=== PATIENT | female | born 1980 | race African-American/Black ===

== ENCOUNTER 2021-09-23 07:53 | Outpatient (CLI) | payer OTHER | END 2021-09-23 07:54 | disposition home or self-care (01) | LOC: CSHLAB 07:53 | PROVIDERS: ATTEND Obstetrics & Gynecology | DX: Z01.812 Encounter for preprocedural laboratory examination (principal); Z20.822 Contact with and (suspected) exposure to COVID-19; D25.9 Leiomyoma of uterus, unspecified; N92.0 Excessive and frequent menstruation with regular cycle | CPT/HCPCS: 84703; 85027; 86850; 86900; 86901; U0003; U0005 ==

== ENCOUNTER 2021-09-28 05:51 | Day surgery (SDC) | payer OTHER ==
[2021-09-23 10:21] LABS: Mean Corpuscular HGB CONC 29.3 g/dL (32.0-36.0); Mean Corpuscular Hemoglobin 16.2 pg (27.0-33.0); Mean Corpuscular Volume 55.5 fl (81.6-98.3); Mean Platelet Volume 9.3 fl (7.4-10.4); Platelet Count 400 10x3/uL (150-450); RBC Distribution Width 20.3 % (11.5-14.5); Red Blood Cell (RBC) Count 4.31 10x6/uL (3.90-5.03); White Blood Cell (WBC) Count 4.5 10x3/uL (3.5-10.5)
[2021-09-23 10:39] LABS: BHCG - Serum Negative (NEGATIVE); Pregs Control Bar Appear? YES (CONTROL BAR)
[2021-09-23 10:40] LABS: Pregs Control Background? CLEAR/WHITE (CLR/WHITE)
[2021-09-23 18:56] LABS: SARS-CoV-2 PCR by NAA Not Detected (NotDetected)
[2021-09-26 12:47] VITALS: BMI 28.9
[2021-09-28] MEDS ORDERED: Bupivacaine PF 0.5% 30 ML VIAL ONE (06:10)
[2021-09-28] MEDS ORDERED: EPINEPHrine 1 MG/ML AMP ONE (06:10)
[2021-09-28] MEDS ORDERED: CeleCOXIB 100 MG CAP ONE (06:32)
[2021-09-28] MEDS ORDERED: Gabapentin 300 MG CAP ONE (06:32)
[2021-09-28] MEDS ORDERED: Lidocaine 1% MPF 2 ML VIAL ONE (06:32)
[2021-09-28] MEDS ORDERED: Famotidine/PF 20 mg/2ml Vial ONE (06:32)
[2021-09-28] MEDS ORDERED: Ondansetron PF 4 MG/2 ML Vial ONE (06:41)
[2021-09-28] MEDS ORDERED: Lidocaine 1% PF 5 ML VIAL ONE (06:41)
[2021-09-28] MEDS ORDERED: Midazolam HCl 2 mg/2 ml Vial ONE ×2 (06:41→07:24)
[2021-09-28] MEDS ORDERED: Ketorolac Tromethamine 30 MG/ML VIAL ONE (06:41)
[2021-09-28] MEDS ORDERED: PROPOFOL 20 ML ONE (06:41)
[2021-09-28] MEDS ORDERED: Fentanyl 250 MCG/5 ML VIAL ONE (06:41)
[2021-09-28] MEDS ORDERED: Rocuronium Bromide 10 MG/ML (10ML VIAL) ONE (06:41)
[2021-09-28] MEDS ORDERED: Dexamethasone 20 MG/5 ML VIAL ONE (06:41)
[2021-09-28] MEDS ORDERED: Glycopyrrolate 0.2 MG/ML 5 ML SYRINGE ONE (06:41)
[2021-09-28] MEDS ORDERED: ceFAZolin 2 GM/Dextrose 50 ML IVPB ONE (07:22)
[2021-09-28] MEDS ORDERED: Meperidine HCl/PF 25 MG/ML VIAL ONE (09:57)
== END 2021-09-28 14:30 | disposition home or self-care (01) ==
LOC: CSHSDC 05:51
PROVIDERS: ATTEND Obstetrics & Gynecology
PROC: 0UT94ZZ Resection of Uterus, Percutaneous Endoscopic Approach (ICD-10-PCS; principal; 2021-09-28)
PROC: 8E0W8CZ Robotic Assisted Procedure of Trunk Region, Via Natural or Artificial Opening Endoscopic (ICD-10-PCS; principal; 2021-09-28)
PROC: 0UT74ZZ Resection of Bilateral Fallopian Tubes, Percutaneous Endoscopic Approach (ICD-10-PCS; principal; 2021-09-28)
DX: D25.9 Leiomyoma of uterus, unspecified (principal); N92.0 Excessive and frequent menstruation with regular cycle; D50.0 Iron deficiency anemia secondary to blood loss (chronic); F17.210 Nicotine dependence, cigarettes, uncomplicated; Z98.51 Tubal ligation status; Z20.822 Contact with and (suspected) exposure to COVID-19
CPT/HCPCS: 36430; 84703; 85027; 86850; 86900; 86901; 88307; J0171; J0690; J1100; J1885; J2175; J2250; J2405; J2704; J3010; P9016; S0020; S0028; U0003; U0005